=== PATIENT | female | born 1985 | race Caucasian/White ===

== ENCOUNTER → 2017-07-23 | Outpatient (CLI) | payer BC ==
[~2017-07-23] MED LIST: BACL10TA PO; CHLO500T4 PO; GABA-488 PO; GABA600T2 PO; HYDR-3812 PO; IBUP-1779 PO; IBUP-1780 PO; METF1000 PO; METF500T4 PO; OXYC-197 PO; OXYC-202 PO; OXYC10TA7 PO; SULF1TAB35 PO; TRAZ-28 PO
== END ==
LOC: RAD 09:44
PROVIDERS: ATTEND Family Medicine
DX: Z36.87 Encounter for antenatal screening for uncertain dates (principal); Z3A.11 11 weeks gestation of pregnancy
CPT/HCPCS: 76801

== ENCOUNTER → 2017-09-04 | Outpatient (CLI) | payer BC | LOC: RAD 11:26 | PROVIDERS: ATTEND Family Medicine | DX: Z36.87 Encounter for antenatal screening for uncertain dates (principal); Z53.29 Procedure and treatment not carried out because of patient's decision for other reasons ==

== ENCOUNTER → 2017-09-09 | Outpatient (CLI) | payer BC ==
--- NOTE | 2017-09-09 20:10 | Diagnostic Imaging Report ---
INDICATION: survey. TECHNIQUE: Multiple real-time grayscale images were obtained over the gravid uterus. COMPARISON: 07/23/2017. FINDINGS: The heart rate is 150 beats per minutes. There is adequate amniotic fluid suggested. The maternal large body habitus among other factors prevent evaluation of the adnexa of the mother. The placenta is posterior. No placenta previa. The cervix appears to be closed with estimated length of 3.5 cm. The kidneys, lateral ventricles, and the stomach are visualized. The bladder, the cord insertion, spine, four-chamber view, and three-vessel cord are not well demonstrated due to large patient body habitus. The growth parameters are: Biparietal diameter: 18 weeks and 2 days. Head circumference: 18 weeks and 1 day. Abdominal circumference: 18 weeks and 1 day. Femur length: 18 weeks and 5 days. These average at: 18 weeks and 3 days. This compares to gestational age of 18 weeks and 1 day based on first trimester ultrasound dating and assigned FARHAT of 02/09/2018. IMPRESSION: Limited survey due to patient's large body habitus. Follow-up study in 2-3 weeks is suggested to reevaluate bladder, three-vessel cord, spine, cord insertion, and four-chamber view. Dictated by: Dictated on workstation # [id number]
== END ==
LOC: RAD 15:19
PROVIDERS: ATTEND Family Medicine
DX: Z34.92 Encounter for supervision of normal pregnancy, unspecified, second trimester (principal); Z3A.18 18 weeks gestation of pregnancy
CPT/HCPCS: 76805

== ENCOUNTER → 2017-10-01 | Outpatient (CLI) | payer BC ==
--- NOTE | 2017-10-01 17:45 | Diagnostic Imaging Report ---
INDICATION: Followup urinary bladder, three-vessel cord, spine, cord insertion and four-chamber view. TECHNIQUE: Multiple real-time grayscale images were obtained over the gravid uterus. COMPARISON: 09/09/2017. FINDINGS: heart rate is 149 beats per minute. The placenta is fundal. No placenta previa. Amniotic fluid appears adequate. The cervix is 4.4 cm in length and is closed. The maternal adnexa is obscured by the gravid uterus. The upper and mid spine appear unremarkable. The lower spine is not well seen. Four-chamber view, the bladder, and three-vessel cord and cord insertion are not well seen. Please note that large patient body habitus is a limiting factor. IMPRESSION: The lower spine, the four-chamber view, bladder, cord insertion and three-vessel cord are still not well seen. Dictated by: Dictated on workstation # [id number]
== END ==
LOC: RAD 13:32
PROVIDERS: ATTEND Family Medicine
DX: Z34.80 Encounter for supervision of other normal pregnancy, unspecified trimester (principal); Z3A.00 Weeks of gestation of pregnancy not specified
CPT/HCPCS: 76805

== ENCOUNTER 2017-12-13 08:50 | Outpatient (RCR) | payer BC, OTHER ==
[~2017-12-13 08:50] MED LIST changes: +ACHD5005 PO; -HYDR-3812 PO; -METF1000 PO; +METF10002 PO; -METF500T4 PO; +METF500T5 PO
[2017-12-13 09:05] VITALS: BP 130/79
[2017-12-20 10:08] VITALS: BP 117/68
[2017-12-26 11:50] VITALS: BP 122/74
[2018-01-03 09:15] VITALS: BP 130/67
[2018-01-17 09:20] VITALS: BP 134/74
[2018-01-29] MEDS ORDERED: GABA-488 PO (20:03)
[2018-01-29] MEDS ORDERED: IRON18TA PO (20:04)
[2018-01-29] MEDS ORDERED: PREN-142 PO (20:04)
[2018-01-31] MEDS ORDERED: OXYC-465 PO (07:49)
[2018-01-31] MEDS ORDERED: IBUP-1780 PO (07:49)
[2018-01-31] MEDS ORDERED: DOCU100C37 PO (07:49)
== END 2018-03-13 | disposition home or self-care (01) ==
LOC: WSo 08:50
PROVIDERS: ATTEND Family Medicine
DX: O24.913 Unspecified diabetes mellitus in pregnancy, third trimester (principal)
CPT/HCPCS: 59025

== ENCOUNTER 2018-01-23 08:51 | Outpatient (CLI) | payer SELFPAY ==
[~2018-01-23] VITALS: Ht 160 cm; Wt 139.9 kg
[~2018-01-23 08:51] MED LIST changes: +METF1000 PO; -METF10002 PO; +METF500T4 PO; -METF500T5 PO
[2018-01-23 09:12] VITALS: BP 134/87
[2018-01-23 09:20] LABS: BILIRUBIN,URINE NEGATIVE (NEGATIVE); GLUCOSE, URINE (UA) NEGATIVE (NEGATIVE); KETONES,URINE NEGATIVE (NEGATIVE); LEUKOCYTE ESTERASE ,URINE 1+ (NEGATIVE); NITRITE,URINE NEGATIVE (NEGATIVE); PH,URINE 6.5 (5-9); UROBILINOGEN,URINE NORMAL (NORMAL)
[2018-01-23 09:27] LABS: CLARITY,URINE CLEAR; COLOR,URINE YELLOW
[2018-01-23 09:35] VITALS: BP 132/85
[2018-01-23 09:50] LABS: PROTEIN,URINE NEGATIVE (NEGATIVE)
[2018-01-23 09:51] LABS: BACTERIA,URINE LARGE /HPF; RBC,URINE RARE /HPF
[2018-01-23 09:55] VITALS: BP 139/90
[2018-01-23 10:15] VITALS: BP 137/91
--- NOTE | 2018-01-23 10:47 | Diagnostic Imaging Report ---
INDICATION: well being and gestational hypertension. TECHNIQUE: Multiple real-time grayscale images were obtained of the gravid uterus in various projections. FINDINGS: biophysical profile score is 8 out of 8. The placenta is posterior. There is no previa or abruption. heart rate is 143 beats per minute. The fetus is in cephalic presentation. Amniotic fluid index was 11.9. IMPRESSION: Normal biophysical profile score of 8 of 8. Dictated by: Dictated on workstation # [id number]
--- NOTE | 2018-01-24 10:53 | Physician Query-Final Dx ---
NEHEMIAS WRIGHT 01/24/18 1053: Clinic Account Progress/Dx Physician Query: Please give diagnosis Date of Service Jan 23, 2018 at 08:51 CANDICE MAGALLANES MD 01/27/18 0715: Clinic Account Progress/Dx DIAGNOSIS: Diagnosis 1. IUP at 37 weeks non labor 2. Isolated elevated blood pressure 3. Gestational diabetes NEHEMIAS WRIGHT Jan 24, 2018 10:53 CANDICE MAGALLANES MD Jan 27, 2018 07:15
== END 2018-01-23 10:40 | disposition home or self-care (01) ==
LOC: WSo 08:51 → LDRP 08:53 → WSo 10:40
PROVIDERS: ATTEND Family Medicine
DX: O24.419 Gestational diabetes mellitus in pregnancy, unspecified control (principal); O99.89 Other specified diseases and conditions complicating pregnancy, childbirth and the puerperium; R03.0 Elevated blood-pressure reading, without diagnosis of hypertension; Z3A.37 37 weeks gestation of pregnancy
CPT/HCPCS: 59025; 76819; 81000; 82570; 84156; 87088

== ENCOUNTER 2018-01-29 05:27 | Inpatient (IN) | payer MEDICAID ==
[~2018-01-29] VITALS: Ht 160 cm; Wt 144.2 kg
[~2018-01-29 05:27] MED LIST changes: -METF1000 PO; +METF10002 PO; -METF500T4 PO; +METF500T5 PO; +TRAZ-189 PO; -TRAZ-28 PO
[2018-01-29] MEDS ORDERED: LACTATED RINGERS 1,000 ML IV ONE (19:23)
[2018-01-29 19:30] VITALS: BP 136/83
[2018-01-29] MEDS ORDERED: BUTORPHANOL INJ 2 MG/ML (STADOL) VIAL IV PRN (19:45)
[2018-01-29] MEDS ORDERED: MINERAL OIL CONCENTRATE 99.9% 15 ML UDC TOP PRN (19:45)
[2018-01-29] MEDS ORDERED: CATHETER FLUSH 10 ML SYR IV PRN (19:45)
[2018-01-29] MEDS ORDERED: ZOLPIDEM 5 MG (AMBIEN) TAB PO NR (19:45)
[2018-01-29] MEDS ORDERED: TERBUTALINE INJ 1 MG/ML (BRETHINE) AMP SC PRN (19:45)
[2018-01-29] MEDS ORDERED: LACTATED RINGERS 1,000 ML IV SCH (19:45)
[2018-01-29 19:54] LABS: BASOPHILS % (AUTO) 0 % (0-10); EOSINOPHILS # (AUTO) 0.1 10^3/uL (0.0-0.3); EOSINOPHILS % (AUTO) 1 % (0-10); HEMATOCRIT 33 % (35-52); LYMPHOCYTES # (AUTO) 2.5 X 10^3 (1.0-4.0); LYMPHOCYTES % (AUTO) 19 % (12-44); MEAN CORPUSCULAR HEMOGLOBIN 27 PG (25-34); MEAN CORPUSCULAR HGB CONC 33 G/DL (32-36); MEAN CORPUSCULAR VOLUME 82 FL (80-99); MEAN PLATELET VOLUME 11.1 FL (7.4-10.4); MONOCYTES # (AUTO) 0.8 X 10^3 (0.0-1.0); MONOCYTES % (AUTO) 6 % (0-12); NEUTROPHILS # (AUTO) 10.1 X 10^3 (1.8-7.8); NEUTROPHILS % (AUTO) 75 % (42-75); PLATELET COUNT 270 10^3/uL (130-400); RED BLOOD COUNT 4.04 10^6/uL (4.35-5.85); RED CELL DISTRIBUTION WIDTH 14.8 % (10.0-14.5); WHITE BLOOD COUNT 13.6 10^3/uL (4.3-11.0)
[2018-01-29] MEDS ORDERED: GABA-488 PO (20:03)
[2018-01-29] MEDS ORDERED: PREN-142 PO (20:04)
[2018-01-29] MEDS ORDERED: IRON18TA PO (20:04)
[2018-01-29] MEDS: LACTATED RINGERS 1,000 ML IV SCH ×2 (20:06→22:42)
[2018-01-29 20:13] LABS: BILIRUBIN,URINE NEGATIVE (NEGATIVE); CLARITY,URINE VERY CLOUDY; COLOR,URINE YELLOW; GLUCOSE, URINE (UA) NEGATIVE (NEGATIVE); KETONES,URINE NEGATIVE (NEGATIVE); LEUKOCYTE ESTERASE ,URINE 2+ (NEGATIVE); NITRITE,URINE NEGATIVE (NEGATIVE); PH,URINE 6.5 (5-9); PROTEIN,URINE 2+ (NEGATIVE); UROBILINOGEN,URINE NORMAL (NORMAL)
[2018-01-29 20:25] LABS: BACTERIA,URINE LARGE /HPF
[2018-01-29] MEDS: MISOPROSTOL 100 MCG (CYTOTEC) TAB PV SCH (20:25)
[2018-01-29 21:30] VITALS: BP 127/75
--- NOTE | 2018-01-29 23:22 | History & Physical-OB ---
OB - Chief Complaint & HPI Date/Time Date of Admission: Date of Admission: Jan 29, 2018 at 18:46 Time Seen by Provider: 09:30 Chief Complaint/History OB-Reason for Admission/Chief: Induction of Labor (due to diabetes and PIH) Hx : 1 Hx Para: 0 Expected Date of Delivery: Feb 09, 2018 Gestational Age in Weeks: 38 Gestational Age in Days: 3 Indication for induction: other Admission Nurse Assessment Rev: Yes History of Labs GBS negative Allergies and Home Medications Allergies Coded Allergies: No Known Drug Allergies (Unverified , 06/09/15) Home Medications Gabapentin 300 Mg Capsule, 300 MG PO DAILY, (Reported) Iron 18 Mg Tablet, 65 MG PO BID, (Reported) Metformin HCl 1,000 Mg Tablet, 1,000 MG PO BID, (Reported) Vit No.124/Iron/FA 1 Each Tablet, 1 EACH PO DAILY, (Reported) Patient Home Medication List Home Medication List Reviewed: Yes OB - History Hx of Present Care: Yes Ultrasounds: Normal mid trimester US Obstetrical Complications: Gestational Diabetes, Other (PIH) Delivery History Hx Blood Disorders: No Adverse Rxn to Tranfusion: No Patient Past Medical History Diabetes mellitus Social History/Family History HIV/AIDS: No Recent Infectious Disease Expo: No Sexually Transmitted Disease: No Alcohol Use: Denies Use Recreational Drug Use: No Immunizations Hepatitis B: Yes OB - Admission Exam Physical Exam Vitals: Vital Signs 01/29/18 19:30 Temp 98.8 Pulse 106 Resp 18 B/P (MAP) 136/83 (100) HEENT: Moist Membranes Heart: Rhythm Normal Lungs: Clear Abdomen: Gravid Extremities: Edema (ankle mild) Cervical Dilatation: None (dimple) Effacement: 25% Station: Ballotable Membranes: Intact Heart Rate: 140's Accelerations: Accelerations Present Decelerations: No Decelerations Short Term Variability: Present Fdc Variability: Average (6-25) Contractions on Admission: None Peterson Scoring Tool (Modified) Dilation (cm): 0/Closed (0) Effacement (%): 0-30% (0) Descent/Station: -3 (0) Cervix Consistency: Soft (2) Cervix Position: Middle/Mid-Position (1) (3) Labs Laboratory Tests Test 01/29/18 19:30 01/29/18 19:35 Range/Units Urine Color YELLOW Urine Clarity VERY CLOUDY H Urine pH 6.5 5-9 Urine Specific [place] 1.015 L 1.016-1.022 Urine Protein 2+ H NEGATIVE Urine Glucose (UA) NEGATIVE NEGATIVE Urine Ketones NEGATIVE NEGATIVE Urine Nitrite NEGATIVE NEGATIVE Urine Bilirubin NEGATIVE NEGATIVE Urine Urobilinogen NORMAL NORMAL MG/DL Urine Leukocyte Esterase 2+ H NEGATIVE Urine RBC (Auto) NEGATIVE NEGATIVE Urine RBC NONE /HPF Urine WBC 5-10 H /HPF Urine Squamous Epithelial Cells 5-10 /HPF Urine Crystals NONE /LPF Urine Bacteria LARGE H /HPF Urine Casts NONE /LPF Urine Mucus NEGATIVE /LPF Urine Culture Indicated YES White Blood Count 13.6 H 4.3-11.0 10^3/uL Red Blood Count 4.04 L 4.35-5.85 10^6/uL Hemoglobin 11.0 L 11.5-16.0 G/DL Hematocrit 33 L 35-52 % Mean Corpuscular Volume 82 80-99 FL Mean Corpuscular Hemoglobin 27 25-34 PG Mean Corpuscular Hemoglobin Concent 33 32-36 G/DL Red Cell Distribution Width 14.8 H 10.0-14.5 % Platelet Count 270 130-400 10^3/uL Mean Platelet Volume 11.1 H 7.4-10.4 FL Neutrophils (%) (Auto) 75 42-75 % Lymphocytes (%) (Auto) 19 12-44 % Monocytes (%) (Auto) 6 0-12 % Eosinophils (%) (Auto) 1 0-10 % Basophils (%) (Auto) 0 0-10 % Neutrophils # (Auto) 10.1 H 1.8-7.8 X 10^3 Lymphocytes # (Auto) 2.5 1.0-4.0 X 10^3 Monocytes # (Auto) 0.8 0.0-1.0 X 10^3 Eosinophils # (Auto) 0.1 0.0-0.3 10^3/uL Basophils # (Auto) 0.0 0.0-0.1 10^3/uL OB - Assessment/Plan/Diagnosis Assessment Assessment: induction of labor (at 38w3d due to maternal diabetes and PIH) Admission Dx 1. IUP at 38w3d 2. Maternal diabetes-oral controlled 3. induced hypertension Admission Status: Inpatient Order (span 2 midnights) Reason for Inpatient Admission: Delivery of Plan Plan: Induction Induction Method: per Misoprostol Protocol Other Plan 2229: Patient had BPP 1 week ago with vertex presentation. With presenting part difficult to detect with digital exam, OB US ordered and at 2310 and breech presentation is confirmed. With maternal VS stable and no current contractions, primary LTCS will be arranged for the am at 07:30. Dr Mills has agreed to perform CS and surgery crew will be notified by the nursing research animal facility supervisor shen. CANDICE MAGALLANES MD Jan 29, 2018 23:22
[2018-01-30] VITALS (7 sets, daily range): BP systolic 120–151; BP diastolic 68–86
[2018-01-30] MEDS ORDERED: ACETAMINOPHEN 500 MG TAB (TYLENOL) PO ONE (00:30)
[2018-01-30] MEDS: MISOPROSTOL 100 MCG (CYTOTEC) TAB PV SCH ×2 (00:32→04:01)
[2018-01-30] MEDS ORDERED: METOCLOPRAMIDE INJ 10 MG/2 ML (REGLAN) ONE (06:13)
[2018-01-30] MEDS ORDERED: CITRIC ACID/SOB CIT (BICITRA) 30 ML UDC ONE (06:13)
[2018-01-30] MEDS ORDERED: raNItidine 50 MG/2 ML INJ (ZANTAC) ONE (06:20)
[2018-01-30] MEDS ORDERED: CITRIC ACID/SOB CIT (BICITRA) 30 ML UDC PO ONE (06:30)
[2018-01-30] MEDS ORDERED: METOCLOPRAMIDE INJ 10 MG/2 ML (REGLAN) IV ONE (06:30)
[2018-01-30] MEDS ORDERED: raNItidine 50 MG/2 ML INJ (ZANTAC) IV ONE (06:30)
[2018-01-30] MEDS ORDERED: LACTATED RINGERS 1,000 ML IV PRN (06:40)
[2018-01-30] MEDS ORDERED: OXYTOCIN/NORMAL SALINE 1,000 ML IV ONE (07:00)
[2018-01-30] MEDS ORDERED: KETOROLAC 30 MG/ML VIAL ONE (07:00)
[2018-01-30] MEDS ORDERED: fentaNYL INJECTION 100 MCG/2 ML AMP ONE (07:01)
[2018-01-30] MEDS ORDERED: KETAMINE HCL 100 MG/ML 5 ML VIAL ONE (07:01)
[2018-01-30] MEDS ORDERED: OXYTOCIN/NORMAL SALINE 500 ML IV SCH (07:06)
--- NOTE | 2018-01-30 07:06 | Progress Note-Pre Operative ---
Pre-Operative Progress Note H&P Reviewed The H&P was reviewed, patient examined and no changes noted. Date Seen by Provider: Jan 30, 2018 Time Seen by Provider: 07:06 Date H&P Reviewed: Jan 30, 2018 Time H&P Reviewed: 07:06 Pre-Operative Diagnosis: with PIH and GDM and breech presentation LUPILLO POE MD Jan 30, 2018 7:06 am
[2018-01-30] MEDS ORDERED: D5 LR IV SOLUTION 1,000 ML IV SCH (07:09)
[2018-01-30] MEDS ORDERED: D5 LR IV SOLUTION 1,000 ML IV ONE (07:14)
[2018-01-30] MEDS ORDERED: TETANUS,DIPTH,PERTUSS P/F (BOOSTRIX) 0.5 ML VIAL IM ONE (07:15)
[2018-01-30] MEDS ORDERED: MEASLES,MUMPS,RUBELLA 1 EA INJ SC ONE (07:15)
[2018-01-30] MEDS ORDERED: ceFAZolin INJECTION 2,000 MG in NS (IVPB) 100 ML IV ONE (07:15)
[2018-01-30] MEDS ORDERED: metroNIDAZOLE 500MG/100ML IVPB 100 ML IV ONE (07:15)
[2018-01-30] MEDS ORDERED: ONDANSETRON 4 MG/2 ML (SDV) Z0FRAN IVP PRN (07:15)
[2018-01-30] MEDS ORDERED: KETOROLAC 30 MG/ML VIAL IVP SCH (07:15)
--- NOTE | 2018-01-30 07:38 | Diagnostic Imaging Report ---
EXAM: US LIMITED [id number] INDICATION: Scheduled induction. Question presentation. COMPARISON: Biophysical profile ultrasound 01/23/2018. FINDINGS: Single live intrauterine in breech presentation. heart rate 161 bpm. Fundal placenta without evidence of previa. IMPRESSION: Single live intrauterine in the breech presentation. Dictated by: Dictated on workstation # [id number]
[2018-01-30] MEDS ORDERED: PHENYLEPHRINE 100 MCG/ML 10 ML (ANESTHESIA) SYR ONE (08:04)
[2018-01-30] MEDS: DOCUSATE SODIUM 100 MG (COLACE) CAP PO SCH ×2 (09:53→20:43)
[2018-01-30] MEDS: oxyCODONE/APAP 10/325MG (PERCOCET 10) TABLET PO PRN (11:05)
--- OUTSIDE RECORDS SUMMARY | 2018-01-30 12:12 | XMS REPORT | Continuity of Care Document ---
Author Author [facility] Address Unknown Phone Unavailable Allergies Active Description Code Type Severity Reaction Onset Reported/Identified Relationship to Patient Clinical Status Yes No Known Drug Allergies [id number] Drug Allergy Unknown N/A 06/09/2015 Medications There is no data. Problems Date Dx Coded Attending Type Code Diagnosis Diagnosed By 06/29/2008 JOAN LUNA V05.3 HEPATITIS VIRAL/ALL 06/29/2008 MOMO SERRANO APRN V05.3 HEPATITIS VIRAL/ALL 06/29/2008 HAN PEREIRA APRN V05.3 HEPATITIS VIRAL/ALL 07/05/2008 JOAN LUNA 845.10 SPRAIN/STRAIN FOOT 07/05/2008 MOMO SERRANO APRN 845.10 SPRAIN/STRAIN FOOT 07/05/2008 HAN PEREIRA APRN 845.10 SPRAIN/STRAIN FOOT 07/26/2008 JOAN LUNA 463 TONSILLITIS ACUTE 07/26/2008 MOMO SERRANO APRN 463 TONSILLITIS ACUTE 07/26/2008 HAN PEREIRA APRN 463 TONSILLITIS ACUTE 09/07/2008 JOAN LUNA 461.9 SINUSITIS ACUTE 09/07/2008 JOAN LUNA 786.2 COUGH 09/07/2008 MOMO SERRANO APRN 461.9 SINUSITIS ACUTE 09/07/2008 MOMO SERRANO APRN 786.2 COUGH 09/07/2008 HAN PEREIRA APRN 461.9 SINUSITIS ACUTE 09/07/2008 HAN PEREIRA APRN 786.2 COUGH 09/23/2008 JOAN LUNA 465.9 UPPER RESPIRATORY INFECTION 09/23/2008 MOMO SERRANO APRN 465.9 UPPER RESPIRATORY INFECTION 09/23/2008 HAN PEREIRA APRN 465.9 UPPER RESPIRATORY INFECTION 10/22/2008 JOAN LUNA 034.0 STREP THROAT 10/22/2008 MAGGIE BRANCH, MOMO L 034.0 STREP THROAT 10/22/2008 HAN PEREIRA APRN T 034.0 STREP THROAT 12/17/2014 Ot 724.4 12/22/2014 MAGGIE BRANCH, MOMO L 724.2 BACK PAIN, LOWER 12/22/2014 MAGGIE BRANCH, MOMO L 847.9 SPRAIN/STRAIN BACK UNSPEC 12/22/2014 KELLI BRANCH, HAN T 724.2 BACK PAIN, LOWER 12/22/2014 KELLI BRANCH, HAN T 847.9 SPRAIN/STRAIN BACK UNSPEC 06/13/2015 ROSALVA ALFRED DO Ot 722.10 06/13/2015 ROSALVA ALFRED DO Ot V72.63 06/13/2015 ROSALVA ALFRED DO Ot V74.8 06/13/2015 ROSALVA ALFRED DO Ot 250.00 DIAB DEAN WO COMPL, TYPE II OR UNSPEC TY 06/13/2015 ROSALVA ALFRED DO Ot 278.01 MORBID OBESITY 06/13/2015 ROSALVA ALFRED DO Ot 401.9 HYPERTENSION NOS 06/13/2015 ROSALVA ALFRED DO Ot 722.10 LUMBAR DISC DISPLACEMENT 06/13/2015 ROSALVA ALFRED DO Ot V85.43 BODY MASS INDEX 50.0-59.9, ADULT 06/17/2015 ROSALVA ALFRED DO Ot 722.10 06/17/2015 ROSALVA ALFRED DO Ot V72.63 06/17/2015 ROSALVA ALFRED DO Ot V74.8 06/27/2015 ROSALVA ALFRED DO Ot 278.00 OBESITY, NOS 06/27/2015 ROSALVA ALFRED DO Ot 998.59 06/27/2015 ROSALVA ALFRED DO Ot 998.83 NON-HEALING SURG WOUND 06/27/2015 ROSALVA ALFRED DO Ot V85.43 BODY MASS INDEX 50.0-59.9, ADULT 07/04/2015 ROSALVA ALFRED DO Ot 722.10 07/04/2015 ROSALVA ALFRED DO Ot V72.63 07/04/2015 ROSALVA ALFRED DO Ot V74.8 04/12/2016 ROSALVA ALFRED DO Ot 722.10 LUMBAR DISC DISPLACEMENT 04/12/2016 ROSALVA ALFRED DO Ot V72.63 PRE-PROCEDURAL LABORATORY EXAMINATION 04/12/2016 AUBRIE DICKSON ROSALVA Lori Ot V74.8 SCREEN-BACTERIAL DIS NEC 04/12/2016 HONG ZEPEDA, ELMIRA Chan Ot G89.29 OTHER CHRONIC PAIN 04/12/2016 HONG ZEPEDA, ELMIRA Chan Ot M54.5 LOW BACK PAIN 05/02/2016 AUBRIE DICKOSN ROSALVA Lori Ot M51.27 OTHER INTERVERTEBRAL DISC DISPLACEMENT, 05/02/2016 AUBRIE DO ROSALVA Lori Ot Z01.812 ENCOUNTER FOR PREPROCEDURAL LABORATORY E 05/02/2016 AUBRIE ROSALVA DICKSON Ot Z11.2 ENCOUNTER FOR SCREENING FOR OTHER BACTER 05/03/2016 AUBRIE ROSALVA DICKSON Ot M51.27 OTHER INTERVERTEBRAL DISC DISPLACEMENT, 05/03/2016 AUBRIE ROSALVA DICKSON Ot Z01.812 ENCOUNTER FOR PREPROCEDURAL LABORATORY E 05/03/2016 AUBRIE ROSALVA DICKSON Ot Z11.2 ENCOUNTER FOR SCREENING FOR OTHER BACTER 05/08/2016 AUBRIE DO ROSALVA Lori Ot M51.27 OTHER INTERVERTEBRAL DISC DISPLACEMENT, 05/08/2016 AUBRIE DO ROSALVA Lori Ot Z01.812 ENCOUNTER FOR PREPROCEDURAL LABORATORY E 05/08/2016 AUBRIE DICKSON ROSALVA Lori Ot Z11.2 ENCOUNTER FOR SCREENING FOR OTHER BACTER 05/14/2016 AUBRIE DO ROSALVA Lori Ot E66.01 MORBID (SEVERE) OBESITY DUE TO EXCESS CA 05/14/2016 AUBRIE DO ROSALVA Lori Ot M51.17 INTVRT DISC DISORDERS W RADICULOPATHY, L 05/14/2016 AUBRIE ROSALVA DICKSON Ot Z68.43 BODY MASS INDEX (BMI) 50-59.9 , ADULT 05/17/2016 AUBRIE DO ROSALVA Lori Ot E66.01 MORBID (SEVERE) OBESITY DUE TO EXCESS CA 05/17/2016 AUBRIE DO ROSALVA Lori Ot M51.17 INTVRT DISC DISORDERS W RADICULOPATHY, L 05/17/2016 AUBRIE ROSALVA DICKSON Ot Z68.43 BODY MASS INDEX (BMI) 50-59.9 , ADULT 07/24/2017 CANDICE MAGALLANES MD Ot Z36.87 ENCOUNTER FOR SCREENING FOR UN 07/24/2017 CANDICE MAGALLANES MD Ot Z3A.11 11 WEEKS GESTATION OF 07/31/2017 CANDICE MAGALLANES MD Ot Z36.87 ENCOUNTER FOR SCREENING FOR UN 07/31/2017 CANDICE MAGALLANES MD, Ot Z3A.11 11 WEEKS GESTATION OF 09/05/2017 CANDICE MAGALLANES MD, Ot Z36.87 ENCOUNTER FOR SCREENING FOR UN 09/05/2017 CANDICE MAGALLANES MD, Ot Z53.29 PROC/TRTMT NOT CRD OUT BEC PT DECISION F 09/10/2017 CANDICE MAGALLANES MD, Ot Z34.92 ENCNTR FOR SUPRVSN OF NORMAL PREG, UNSP, 09/10/2017 CANDICE MAGALLANES MD, Ot Z3A.18 18 WEEKS GESTATION OF 09/15/2017 CANDICE MAGALLANES MD, Ot Z34.92 ENCNTR FOR SUPRVSN OF NORMAL PREG, UNSP, 09/15/2017 CANDICE MAGALLANES MD, Ot Z3A.18 18 WEEKS GESTATION OF 09/18/2017 CANDICE MAGALLANES MD, Ot Z34.92 ENCNTR FOR SUPRVSN OF NORMAL PREG, UNSP, 09/18/2017 CANDICE MAGALLANES MD, Ot Z3A.18 18 WEEKS GESTATION OF 10/09/2017 CANDICE MAGALLANES MD, Ot Z34.80 ENCOUNTER FOR SUPRVSN OF NORMAL PREGNANC 10/09/2017 CANDICE MAGALLANES MD, Ot Z3A.00 WEEKS OF GESTATION OF NOT SPEC 01/23/2018 CANDICE MAGALLANES MD, Ot O24.419 GESTATIONAL DIABETES MELLITUS IN PREGNAN 01/23/2018 CANDICE MAGALLANES MD, Ot O99.89 OTH DISEASES AND CONDITIONS COMPL PREG/C 01/23/2018 CANDICE MAGALLANES MD, Ot R03.0 ELEVATED BLOOD-PRESSURE READING, W/O JUSTIN 01/23/2018 CANDICE MAGALLANES MD, Ot Z3A.37 37 WEEKS GESTATION OF 01/23/2018 ROSALVA ALFRED DO Ot 722.10 LUMBAR DISC DISPLACEMENT 01/23/2018 ROSALVA ALFRED DO Ot V72.63 PRE-PROCEDURAL LABORATORY EXAMINATION 01/23/2018 ROSALVA ALFRED DO Ot V74.8 SCREEN-BACTERIAL DIS NEC 01/28/2018 CANDICE MAGALLANES MD, Ot O24.419 GESTATIONAL DIABETES MELLITUS IN PREGNAN 01/28/2018 CANDICE MAGALLANES MD Ot O99.89 OT DISEASES AND CONDITIONS COMPL PREG/C 01/28/2018 CANDICE MAGALLANES MD Ot R03.0 ELEVATED BLOOD-PRESSURE READING, W/O JUSTIN 01/28/2018 CANDICE MAGALLANES MD Ot Z3A.37 37 WEEKS GESTATION OF 01/28/2018 CANDICE MAGALLANES MD Ot O24.419 GESTATIONAL DIABETES MELLITUS IN PREGNAN 01/28/2018 CANDICE MAGALLANES MD Ot O99.89 OTH DISEASES AND CONDITIONS COMPL PREG/C 01/28/2018 CANDICE MAGALLANES MD, Ot R03.0 ELEVATED BLOOD-PRESSURE READING, W/O JUSTIN 01/28/2018 CANDICE MAGALLANES MD Ot Z3A.37 37 WEEKS GESTATION OF 01/29/2018 ROSALVA ALFRED DO Ot 722.10 LUMBAR DISC DISPLACEMENT 01/29/2018 ROSALVA ALFRED DO Ot V72.63 PRE-PROCEDURAL LABORATORY EXAMINATION 01/29/2018 ROSALVA ALFRED DO Ot V74.8 SCREEN-BACTERIAL DIS NEC 01/29/2018 ROSALVA ALFRED DO Ot 722.10 LUMBAR DISC DISPLACEMENT 01/29/2018 ROSALVA ALFRED DO Ot V72.63 PRE-PROCEDURAL LABORATORY EXAMINATION 01/29/2018 ROSALVA ALFRED DO Ot V74.8 SCREEN-BACTERIAL DIS NEC 01/29/2018 ROSALVA ALFRED DO Ot 722.10 LUMBAR DISC DISPLACEMENT 01/29/2018 ROSALVA ALFRED DO Ot V72.63 PRE-PROCEDURAL LABORATORY EXAMINATION 01/29/2018 ROSALVA ALFRED DO Ot V74.8 SCREEN-BACTERIAL DIS NEC 01/29/2018 ROSALVA ALFRED DO Ot 722.10 LUMBAR DISC DISPLACEMENT 01/29/2018 ROSAVLA ALFRED DO Ot V72.63 PRE-PROCEDURAL LABORATORY EXAMINATION 01/29/2018 ROSALVA ALFRED DO Ot V74.8 SCREEN-BACTERIAL DIS NEC 01/30/2018 ROSALVA ALFRED DO Ot 722.10 LUMBAR DISC DISPLACEMENT 01/30/2018 ROSALVA ALFRED DO Ot V72.63 PRE-PROCEDURAL LABORATORY EXAMINATION 01/30/2018 ROSALVA ALFRED DO Ot V74.8 SCREEN-BACTERIAL DIS NEC Procedures Code Description [place] [address] THERAPUTIC INJ SQ/IM 02/02/2015 J1885 TORADOL INJ 02/02/2015 Results Test Result Range Urine protein/creatinine mass ratio - 01/23/18 08:50 Urine protein measurement (mass/volume) 12 mg/dL 6-12 Urine creatinine measurement (mass/volume) 119 mg/dL 30- 125 Urine protein/creatinine mass ratio 0.10 NRG Complete urinalysis with reflex to culture - 01/23/18 08:50 Urine color determination YELLOW NRG Urine clarity determination CLEAR NRG Urine pH measurement by test strip 6.5 5-9 Specific gravity of urine by test strip 1.020 1.016- 1.022 Urine protein assay by test strip, semi-quantitative NEGATIVE NEGATIVE Urine glucose detection by automated test strip NEGATIVE NEGATIVE Erythrocytes detection in urine sediment by light microscopy NEGATIVE NEGATIVE Urine ketones detection by automated test strip NEGATIVE NEGATIVE Urine nitrite detection by test strip NEGATIVE NEGATIVE Urine total bilirubin detection by test strip NEGATIVE NEGATIVE Urine urobilinogen measurement by automated test strip (mass/volume) NORMAL NORMAL Urine leukocyte esterase detection by dipstick 1+ NEGATIVE Automated urine sediment erythrocyte count by microscopy (number/high power field) RARE NRG Automated urine sediment leukocyte count by microscopy (number/high power field ) [HPF] NRG Bacteria detection in urine sediment by light microscopy LARGE NRG Squamous epithelial cells detection in urine sediment by light microscopy 10-25 NRG Crystals detection in urine sediment by light microscopy NONE NRG Casts detection in urine sediment by light microscopy NONE NRG Mucus detection in urine sediment by light microscopy NEGATIVE NRG Complete urinalysis with reflex to culture YES NRG Bacterial urine culture - 01/23/18 08:50 URINE CULTURE RESULTS MORE THAN 3 ISOLATES NRG Complete urinalysis with reflex to culture - 01/29/18 19:30 Urine color determination YELLOW NRG Urine clarity determination VERY CLOUDY NRG Urine pH measurement by test strip 6.5 5-9 Specific gravity of urine by test strip 1.015 1.016- 1.022 Urine protein assay by test strip, semi-quantitative 2+ NEGATIVE Urine glucose detection by automated test strip NEGATIVE NEGATIVE Erythrocytes detection in urine sediment by light microscopy NEGATIVE NEGATIVE Urine ketones detection by automated test strip NEGATIVE NEGATIVE Urine nitrite detection by test strip NEGATIVE NEGATIVE Urine total bilirubin detection by test strip NEGATIVE NEGATIVE Urine urobilinogen measurement by automated test strip (mass/volume) NORMAL NORMAL Urine leukocyte esterase detection by dipstick 2+ NEGATIVE Automated urine sediment erythrocyte count by microscopy (number/high power field) NONE NRG Automated urine sediment leukocyte count by microscopy (number/high power field ) [HPF] NRG Bacteria detection in urine sediment by light microscopy LARGE NRG Squamous epithelial cells detection in urine sediment by light microscopy 5-10 NRG Crystals detection in urine sediment by light microscopy NONE NRG Casts detection in urine sediment by light microscopy NONE NRG Mucus detection in urine sediment by light microscopy NEGATIVE NRG Complete urinalysis with reflex to culture YES NRG Complete blood count (CBC) with automated white blood cell (WBC) differential - 01/29/18 19:35 Blood leukocytes automated count (number/volume) 13.6 10*3/uL 4.3-11.0 Blood erythrocytes automated count (number/volume) 4.04 10*6/uL 4.35-5.85 Venous blood hemoglobin measurement (mass/volume) 11.0 g/dL 11.5-16.0 Blood hematocrit (volume fraction) 33 % 35-52 Automated erythrocyte mean corpuscular volume 82 [foz_us] 80-99 Automated erythrocyte mean corpuscular hemoglobin (mass per erythrocyte) 27 pg 25-34 Automated erythrocyte mean corpuscular hemoglobin concentration measurement ( mass/volume) 33 g/dL 32-36 Automated erythrocyte distribution width ratio 14.8 % 10.0-14.5 Automated blood platelet count (count/volume) 270 10*3/uL 130-400 Automated blood platelet mean volume measurement 11.1 [foz_us] 7.4-10.4 Automated blood neutrophils/100 leukocytes 75 % 42-75 Automated blood lymphocytes/100 leukocytes 19 % 12-44 Blood monocytes/100 leukocytes 6 % 0-12 Automated blood eosinophils/100 leukocytes 1 % 0-10 Automated blood basophils/100 leukocytes 0 % 0-10 Blood neutrophils automated count (number/volume) 10.1 10*3 1.8-7.8 Blood lymphocytes automated count (number/volume) 2.5 10*3 1.0-4.0 Blood monocytes automated count (number/volume) 0.8 10*3 0.0-1.0 Automated eosinophil count 0.1 10*3/uL 0.0-0.3 Automated blood basophil count (count/volume) 0.0 10*3/uL 0.0-0.1 Blood type T Indirect antibody screen panel - 01/29/18 19:35 ABO+Rh group AP NRG Transfusion band number [id number] NRG Blood group antibody screen NEGATIVE NRG Encounters ACCT No. Visit Date/Time Discharge Status Pt. Type Provider Facility Loc./Unit Complaint [id number] 02/02/2015 17:08:00 02/02/2015 23:59:59 CLS Outpatient HAN PEREIRA APRN [id number] 01/11/2015 08:34:00 01/11/2015 23:59:59 CLS Outpatient MOMO SERRANO APRN [id number] 10/10/2009 11:58:00 10/10/2009 23:59:59 CLS Outpatient JOAN LUNA [id number] 10/29/2012 20:19:00 RECURRING [id number] 01/23/2018 08:51:00 01/23/2018 10:40:00 DIS Outpatient CANDICE MAGALLANES MD [facility] NST BPP [id number] 12/13/2017 08:50:00 12/13/2017 23:59:59 CLS Outpatient CANDICE MAGALLANES MD [facility] , 3RD TRIMESTER, DIABETIC [id number] 10/01/2017 13:32:00 10/01/2017 23:59:59 CLS Outpatient CANDICE MAGALLANES MD [facility] RAD OB FU FOR BLADDER [id number] 09/09/2017 15:19:00 09/09/2017 23:59:59 CLS Outpatient CANDICE MAGALLANES MD [facility] RAD SURVEY [id number] 09/04/2017 11:26:00 09/04/2017 23:59:59 CLS Outpatient CANDICE MAGALLANES MD [facility] RAD SURVEY [id number] 07/23/2017 09:44:00 07/23/2017 23:59:59 CLS Outpatient CANDICE MAGALLANES MD [facility] RAD DATES [id number] 05/14/2016 06:20:00 05/14/2016 15:20:00 DIS Outpatient ROSALVA ALFRED DO [facility] NUCLEUS PULPOSUS [id number] 05/02/2016 09:52:00 05/02/2016 10:20:00 DIS Outpatient ROSALVA ALFRED DO [facility] PREOP NUCLEUS PULPOSUS [id number] 04/11/2016 23:53:00 04/12/2016 01:41:00 DIS Emergency HONG ZEPEDA, ELMIRA Chan [facility] ER BACK PAIN [id number] 06/27/2015 03:51:00 06/27/2015 16:27:00 DIS Inpatient ROSALVA ALFRED DO [facility] SURGICAL POST OPERATIVE INFECTION,FEVER [id number] 06/13/2015 08:54:00 06/13/2015 16:20:00 DIS Outpatient ROSALVA ALFRED DO [facility] SDC HERNIATED NUCLEUS PULPOSUS [id number] 06/02/2015 09:45:00 06/02/2015 23:59:59 CLS Outpatient ROSALVA ALFRED DO [facility] PREOP HERNIATED NUCLEUS PULPOSUS [id number] 01/29/2018 18:46:00 ACT Inpatient SONA ZEPEDA, CANDICE Chavarria [facility] LDRP BREECH PRESENTATION [id number] 12/14/2014 14:23:00 Document Registration [id number] 06/27/2015 02:30:51 ACT Document Registration
[2018-01-30] MEDS: PROMETHAZINE INJ 25 MG/ML (PHENERGAN) AMP IM PRN ×2 (13:05→20:44)
[2018-01-30] MEDS: MEPERIDINE (DEMEROL) INJ 100 MG/ML IM PRN ×2 (13:05→20:43)
--- NOTE | 2018-01-30 14:33 | OPERATIVE REPORT ---
DATE OF SERVICE: 01/30/2018 PREOPERATIVE DIAGNOSES: Term at 38+ weeks gestation with gestational diabetes, PIH, morbid obesity and eleanor breech presentation. POSTOPERATIVE DIAGNOSES: Term at 38+ weeks gestation with gestational diabetes, PIH, morbid obesity and eleanor breech presentation. OPERATIVE PROCEDURE: Primary low transverse delivery of a viable female infant with Apgars of 8 and 9 at 1 and 5 respectively, weight of 9 pounds 5 ounces. Cord blood pH of 7.23. time of 0745. ALUMINUM SHINGLE ROOFER FOR DELIVERY: Mich Russo MD DAIRY SCIENTIST FOR DELIVERY: Mich Russo MD OPERATIVE DESCRIPTION: With the patient in the supine position under satisfactory spinal anesthesia, the patient was prepped and draped in the usual fashion for abdominal surgery. The patient had a very large panniculus that was supported by placing towel clips at the upper margin of the right and left lower quadrants and then fixing those distention at the head of the bed with a Kerlix to expose the lower abdomen and the mons. With the patient satisfactorily prepped and draped, a Pfannenstiel incision was then made through the skin with a scalpel at the lower abdomen at the site of a normal Pfannenstiel incision. The abdomen was entered in the usual manner. Bladder retractor placed into position and clean scalpel used to make a 4 cm hysterotomy incision transversely across the lower uterine segment. Copious clear fluid was released on hysterotomy. A vigorous viable female was delivered via the uterine incision by breach extraction after first locating the feet then those down to the incision. The infant was bulb suctioned on completion of delivery. The umbilical cord was doubly clamped and cut and the taken to the warmer by Dr. Russo, the compliance tester in attendance for delivery. Cord bloods were obtained. The placenta delivered spontaneously [place]. It was normal with a 3-vessel cord. The uterus was exteriorized and to wipe clean with a wet laparotomy sponge. Uterine incision then closed with a running locked suture of 2-0 Vicryl. Hemostasis was complete. The uterus was returned to the abdominal cavity. All blood clot and debris removed from the abdominal cavity. With sponge, needle counts correct, hemostasis assured. The anterior parietal peritoneum was closed with running suture of 2-0 Vicryl. Rectus muscles were closed with that suture as well, rectus fascia was closed with 2-0 Vicryl, subcutaneous tissue with 2-0 Vicryl and the skin was stapled. Sponge and needle counts were correct at the end of procedure. Estimated blood loss for the procedure was around 600 mL. The patient tolerated the procedure well and was recovered in the recovery room. The had been taken stable to the full term nursery under the care of Dr. Russo. Job ID: [id number] DocumentID: [id number] Dictated Date: 01/30/2018 08:14:07 Ballet Dancer Date: 01/30/2018 14:33:20 Dictated By: LUPILLO POE MD
[2018-01-30] MEDS: KETOROLAC 30 MG/ML VIAL IVP SCH ×2 (15:20→20:43)
[2018-01-30] MEDS ORDERED: PATIENT MAY USE OWN MEDS, ALL MC SCH (16:15)
[2018-01-30] MEDS: metFORMIN 500 MG (GLUCOPHAGE) TAB PO SCH (20:43)
[2018-01-30] MEDS ORDERED: NON-FORMULARY MEDICATION 1 EA EA (Metformin HCl 1,000 MG) PO SCH (21:00)
[2018-01-31 03:05] VITALS: BP 147/88
[2018-01-31] MEDS: KETOROLAC 30 MG/ML VIAL IVP SCH (03:05)
[2018-01-31] MEDS ORDERED: PRENATAL VITAMIN 1 EA TAB PO SCH (07:00)
--- NOTE | 2018-01-31 07:46 | Anesthesia-Regional Post-Op ---
Regional Patient Condition Mental Status: Alert, Oriented x3 Circulation: Same as Pre-Op Headache: Absent Sensation: Full Recovery Motor Block: Absent Post Op Complications Complications None Follow Up Care/Instructions Patient Instructions None needed. Anesthesia/Patient Condition Patient is doing well, no complaints, stable vital signs, no apparent adverse anesthesia problems. No complications reported per nursing. LUCRECIA QUEZADA CRNA Jan 31, 2018 07:46
--- NOTE | 2018-01-31 07:47 | Progress Note-Standard ---
Standard Progress Note Progress Notes/Assess & Plan Date Seen by Provider: Jan 31, 2018 Time Seen by Provider: 07:46 Progress/Assessment & Plan This patient is without complaint. She is ablating, voiding, tolerating by mouth well, has good pain control. Patient denies chest pain, denies shortness of breath, denies nausea vomiting, and denies headache. Vital Signs Date Time Temp Pulse Resp B/P (MAP) Pulse Ox O2 Delivery O2 Flow Rate FiO2 01/31/18 03:05 98.6 99 24 147/88 (107) 98 Room Air 01/30/18 20:45 99.1 105 24 151/82 (105) 97 Room Air 01/30/18 15:58 98.2 109 24 133/82 (99) 97 Room Air 01/30/18 12:10 98.1 88 20 120/68 (85) 96 Room Air 01/30/18 09:15 98.0 98 16 130/76 (94) 98 Room Air I & O 01/31/18 07:00 Intake Total 5000 ml Output Total 1900 ml Balance 3100 ml Vital signs are stable. Patient is afebrile. Blood pressures have been acceptable The abdomen is benign. Extreme show no clubbing cyanosis. There is no Homans sign. There is fairly notable pretibial pitting edema that is not abnormal. Assessment and plan postoperative day number 1 status post primary doing well. Plan for routine convalescence care today and consider discharge home tomorrow LUPILLO POE MD Jan 31, 2018 7:47 am
[2018-01-31] MEDS ORDERED: IBUP-1780 PO (07:49)
[2018-01-31] MEDS ORDERED: DOCU100C37 PO (07:49)
[2018-01-31] MEDS ORDERED: OXYC-465 PO (07:49)
--- NOTE | 2018-01-31 07:51 | Discharge Instructions ---
Discharge Instructions Discharge Medications New, Converted or Re-Newed RX: RX on Chart Patient Instructions Patient Instructions: As directed Return to The Hospital For: As directed Activity & Diet Discharge Diet: No Restrictions Activity as Tolerated: No Orders-Post D/C & Referrals Follow Up Appt: RTC 1 week for incision check with Dr. Mills Call to make follow up appt. for patient in [address] Wadsworth Wound Care: Remove kirk, apply benzoin and steri strips. Activity Per routine post instructions. Please call in RX to patient pharmacy. Diet as tolerated Patient may shower or tub bathe as desired. Continue home meds LUPILLO MILLS MD Jan 31, 2018 7:51 am
[2018-01-31 08:15] VITALS: BP 128/84
[2018-01-31] MEDS: metFORMIN 500 MG (GLUCOPHAGE) TAB PO SCH ×2 (08:24→19:14)
[2018-01-31] MEDS: PRENATAL VITAMIN 1 EA TAB PO SCH (08:24)
[2018-01-31] MEDS: IBUPROFEN 800 MG (MOTRIN) TAB PO SCH ×3 (08:24→21:07)
[2018-01-31] MEDS: DOCUSATE SODIUM 100 MG (COLACE) CAP PO SCH ×2 (08:25→21:07)
[2018-01-31] MEDS: GABAPENTIN 300 MG (NEURONTIN) CAP PO SCH (08:27)
[2018-01-31] MEDS: oxyCODONE/APAP 10/325MG (PERCOCET 10) TABLET PO PRN ×3 (09:29→21:08)
[2018-01-31 15:00] VITALS: BP 131/84
[2018-01-31 22:15] VITALS: BP 132/88
[2018-02-01 04:20] VITALS: BP 132/86
[2018-02-01] MEDS: IBUPROFEN 800 MG (MOTRIN) TAB PO SCH ×2 (04:20→10:42)
[2018-02-01] MEDS: oxyCODONE/APAP 10/325MG (PERCOCET 10) TABLET PO PRN ×2 (04:20→10:42)
[2018-02-01 08:15] VITALS: BP 127/72
--- NOTE | 2018-02-01 08:45 | Progress Note-Standard ---
Standard Progress Note Progress Notes/Assess & Plan Date Seen by Provider: Feb 01, 2018 Time Seen by Provider: 08:44 Progress/Assessment & Plan This patient is without complaint. She is ablating, voiding, tolerating by mouth well, has good pain control. Patient denies chest pain, denies shortness of breath, denies nausea vomiting, and denies headache. Vital Signs Date Time Temp Pulse Resp B/P (MAP) Pulse Ox O2 Delivery O2 Flow Rate FiO2 01/31/18 03:05 98.6 99 24 147/88 (107) 98 Room Air 01/30/18 20:45 99.1 105 24 151/82 (105) 97 Room Air 01/30/18 15:58 98.2 109 24 133/82 (99) 97 Room Air 01/30/18 12:10 98.1 88 20 120/68 (85) 96 Room Air 01/30/18 09:15 98.0 98 16 130/76 (94) 98 Room Air I & O 01/31/18 07:00 Intake Total 5000 ml Output Total 1900 ml Balance 3100 ml Vital signs are stable. Patient is afebrile. Blood pressures have been acceptable The abdomen is benign. Extreme show no clubbing cyanosis. There is no Homans sign. There is fairly notable pretibial pitting edema that is not abnormal. Assessment and plan postoperative day number 1 status post primary doing well. Plan for routine convalescence care today and consider discharge home tomorrow February 01, 2015 Patient without complaint. She is ambulating, voiding, tolerating by mouth, had good pain control. Patient is requesting discharge home. Vital Signs Date Time Temp Pulse Resp B/P (MAP) Pulse Ox O2 Delivery O2 Flow Rate FiO2 02/01/18 04:20 97.3 99 18 132/86 (101) 99 Room Air 01/31/18 22:15 97.7 101 18 132/88 (103) 97 Room Air 01/31/18 15:00 98.1 102 18 131/84 (100) 98 Room Air I & O 02/01/18 07:00 Intake Total 1400 ml Balance 1400 ml Vital signs are stable. Patient afebrile. Abdomen is benign. The surgical incision is clean dry and intact. Extremities show no clubbing cyanosis. Homans sign. Pretibial pitting edema that is normal. Assessment and plan postoperative day number 2 status post primary doing well. Plan is for discharge home with follow-up in clinic Final Diagnosis Primary delivery LUPILLO POE MD Feb 01, 2018 8:45 am
--- NOTE | 2018-02-01 08:48 | Discharge Summary ---
Discharge Summary Primary delivery This patient is a 32-year-old G1 white female patient Dr. Wadsworth she was admitted on January 29, 2018 for labor induction secondary to hypertension and diabetes at 38+ weeks gestation. After admission she was found to have a breech presentation. She was observed through the night on January 29. On January 30 was consult for primary delivery secondary to the breech presentation. She underwent delivery under spinal analgesia on that date On January 31 patient is ambulating, voiding, tolerating by mouth, had good pain control. Patient had routine care through the day. Now on February 01 patient is again ambulating well voiding well tolerating by mouth well has good pain control and is requesting discharge home. Diagnoses this hospitalization is 38+ week primary delivery Secondary diagnoses are morbid obesity, hypertension, gestational diabetes, eleanor breech presentation Operation procedures include monitoring spinal analgesia and primary delivery Patient given appropriate discharge instructions verbally and in writing a copy placed in chart., Discharge medications are Percocet and Motrin and Colace. Clinical Quality Measures DVT/VTE Risk/Contraindication: Risk Factor Score Per Nursin RFS Level Per Nursing on Admit: 2=Moderate LUPILLO POE MD Feb 01, 2018 8:48 am
[2018-02-01] MEDS: DOCUSATE SODIUM 100 MG (COLACE) CAP PO SCH (09:23)
[2018-02-01] MEDS: PRENATAL VITAMIN 1 EA TAB PO SCH (09:23)
[2018-02-01] MEDS: metFORMIN 500 MG (GLUCOPHAGE) TAB PO SCH (09:25)
[2018-02-01] MEDS: GABAPENTIN 300 MG (NEURONTIN) CAP PO SCH (09:29)
[2018-02-01] MEDS ORDERED: TETANUS,DIPTH,PERTUSS P/F (BOOSTRIX) 0.5 ML VIAL IM ONE (12:29)
== END 2018-02-01 12:45 | disposition home or self-care (01) | DRG 765 ==
LOC: LDRP 18:46
PROVIDERS: ADMIT Family Medicine; ATTEND Family Medicine
PROC: 3E0P7GC Introduction of Other Therapeutic Substance into Female Reproductive, Via Natural or Artificial Opening (ICD-10-PCS; 2018-01-29)
PROC: 10D00Z1 Extraction of Products of Conception, Low, Open Approach (ICD-10-PCS; principal; 2018-01-30 07:18)
DX: O13.4 Gestational [pregnancy-induced] hypertension without significant proteinuria, complicating childbirth (principal); Z68.43 Body mass index [BMI] 50.0-59.9, adult; O24.425 Gestational diabetes mellitus in childbirth, controlled by oral hypoglycemic drugs; O64.1XX0 Obstructed labor due to breech presentation, not applicable or unspecified; O99.214 Obesity complicating childbirth; E66.01 Morbid (severe) obesity due to excess calories; Z3A.38 38 weeks gestation of pregnancy; Z37.0 Single live birth; Z23 Encounter for immunization; Z79.84 Long term (current) use of oral hypoglycemic drugs
CPT/HCPCS: 36415; 76815; 81000; 85025; 86850; 86900; 86901; 87088; 88307; 90715; 94664

== ENCOUNTER → 2020-03-30 | Outpatient (CLI) | payer SELFPAY ==
[~2020-03-30] MED LIST changes: +DOCU100C37 PO; -GABA600T2 PO; +GBPN600T PO; +IRON18TA PO; +METF-397 PO; +METF-399 PO; -METF10002 PO; -METF500T5 PO; -OXYC-197 PO; -OXYC-202 PO; +OXYC-465 PO; +OXYC1TAB12 PO; +OXYC1TAB87 PO; +PREN-142 PO; -TRAZ-189 PO; +TRZ50T PO
--- NOTE | 2020-03-30 16:43 | Diagnostic Imaging Report ---
INDICATION: Size and dates. COMPARISON: None. TECHNIQUE: Transpelvic and transvaginal sonogram was performed. FINDINGS: There is a single, live intrauterine with a crown-rump length measuring 18.9 cm, which is consistent with an 8 week and 3 day old fetus. heart rate was documented at 179 beats per minute. anatomy is not well seen at this early state of gestation. There is small area of hypoechogenicity peripheral to the gestational sac near the lower uterine segment concerning for small subchorionic hemorrhage. No adnexal masses are identified. Ovaries cannot be adequately visualized There is no free fluid in the cul-de-sac. CLINICAL DATES: Gestational age 9 weeks and 5 days FARHAT is 10/28/2020 IMPRESSION: 1. Single, live intrauterine at 8 weeks and 3 days gestation. Estimated due date is 11/06/2020. 2. Probable small subchorionic hemorrhage. Dictated by: Dictated on workstation # [id number]
== END ==
LOC: RAD 14:52
PROVIDERS: ATTEND Family Medicine
DX: Z34.91 Encounter for supervision of normal pregnancy, unspecified, first trimester (principal); Z3A.08 8 weeks gestation of pregnancy
CPT/HCPCS: 76801; 76817

== ENCOUNTER → 2020-06-14 | Outpatient (CLI) | payer OTHER ==
--- NOTE | 2020-06-14 13:02 | Diagnostic Imaging Report ---
INDICATION: survey. TECHNIQUE: Multiple real-time grayscale images were obtained over the gravid uterus. COMPARISON: 03/30/2020. FINDINGS: There is a single live fetus in a cephalic presentation. heart rate was recorded at 147 bpm. Placenta is anterior. Amniotic fluid index is 12.4 cm. No previa is identified. Cervical length is 5.2 cm. survey is somewhat limited due to patient's body habitus. brain anatomy as well as four-chamber heart view, kidneys and spine were not well visualized. bladder and stomach are unremarkable. There is a three-vessel cord with normal insertion. Biometrical measurements are as follows: Biparietal 4.56 cm, age 19 weeks 6 days. Head circumference 16.61 cm, age 19 weeks 3 days. Abdominal circumference 14.51 cm, age 19 weeks 6 days. Femur length 2.94 cm, age 19 weeks 1 days. Sonographic estimate age: 19 weeks 4 days. Sonographic estimated date of delivery: 11/04/2020. Estimated Weight: 294 gm (+/- 43 gm). LMP percentile: 6%. heart rate: 147 beats per minute. number: 1 of 1. IMPRESSION: Single live IUP at 19-20 weeks gestational age showing normal interval growth when compared with prior exam. survey is unremarkable, although survey of the brain anatomy, four-chambered heart view, kidneys and spine was limited due to patient's body habitus. Follow-up could be performed. Dictated by: Dictated on workstation # [id number]
== END ==
LOC: RAD 09:27
PROVIDERS: ATTEND Family Medicine
DX: Z34.92 Encounter for supervision of normal pregnancy, unspecified, second trimester (principal); Z3A.19 19 weeks gestation of pregnancy
CPT/HCPCS: 76805

== ENCOUNTER → 2020-08-30 | Outpatient (CLI) | payer OTHER ==
[~2020-08-30] MED LIST changes: -OXYC-465 PO; +OXYC-556 PO
--- NOTE | 2020-08-30 11:34 | Diagnostic Imaging Report ---
INDICATION: , follow-up. COMPARISON: 06/14/2020. TECHNIQUE: Multiple real-time grayscale images were obtained over the gravid uterus. FINDINGS: There is a single live intrauterine gestation in breech presentation. The cervix measures 4.2 cm in length. No endocervical fluid or funneling is seen. Measurements are given below. The nose and lips are seen. The lateral ventricles are seen in normal in size. The cerebellum appears normal. The cisterna magna appears normal in size. The four-chamber heart is seen and appears normal. heart rate measures 150 BPM. The upper and lower extremities are seen bilaterally. The bilateral kidneys are seen. The upper and lower spine is seen. The diaphragm is seen. The placenta is anterior and appears normal. The amniotic fluid index measures 18.7 cm. Biometrical measurements are as follows: Biparietal 8.02 cm, age 32 weeks 2 days. Head circumference 29.45 cm, age 32 weeks 4 days. Abdominal circumference 28.86 cm, age 33 weeks 0 days. Femur length 6.30 cm, age 32 weeks 5 days. Sonographic estimate age: 32 weeks 5 days. Sonographic estimated date of delivery: 10/20/20. Estimated Weight: 2028 gm (+/- 296 gm). LMP percentile: 98%. heart rate: 150 beats per minute. number: 1 of 1. IMPRESSION: 1. Single live intrauterine gestation measuring at 32 weeks and 5 days, which is within range of the given clinical dates. 2. anatomy not seen on the prior exam is visible today. No abnormalities are seen. 3. Breech presentation. Dictated by: Dictated on workstation # [id number]
== END ==
LOC: RAD 09:37
PROVIDERS: ATTEND Family Medicine
DX: Z34.03 Encounter for supervision of normal first pregnancy, third trimester (principal); Z3A.32 32 weeks gestation of pregnancy
CPT/HCPCS: 76816

== ENCOUNTER 2020-09-30 09:21 | Outpatient (RCR) | payer MEDICAID, OTHER ==
[2020-09-30 09:59] VITALS: BP 121/75
[2020-10-17] MEDS ORDERED: FERR-84 PO (13:11)
[2020-10-17] MEDS ORDERED: GBPN600T PO (13:11)
[2020-10-17] MEDS ORDERED: GLBR5T PO (13:11)
[2020-10-24] MEDS ORDERED: DCS100C PO (07:33)
[2020-10-24] MEDS ORDERED: IBUP-844 PO (07:33)
[2020-10-24] MEDS ORDERED: ACHD5005 PO (07:33)
== END 2020-12-29 | disposition home or self-care (01) ==
LOC: WSo 09:21
PROVIDERS: ATTEND Family Medicine
DX: O24.419 Gestational diabetes mellitus in pregnancy, unspecified control (principal); Z3A.00 Weeks of gestation of pregnancy not specified
CPT/HCPCS: 59025

== ENCOUNTER 2020-10-17 05:36 | Outpatient (RCR) | payer MEDICAID ==
[~2020-10-17] VITALS: Ht 160 cm; Wt 140.9 kg
[2020-10-17] MEDS ORDERED: GBPN600T PO (13:11)
[2020-10-17] MEDS ORDERED: FERR-84 PO (13:11)
[2020-10-17] MEDS ORDERED: GLYB5TAB6 PO (13:11)
== END 2020-10-17 13:34 | disposition home or self-care (01) ==
LOC: PREOP 05:36
PROVIDERS: ATTEND Obstetrics & Gynecology
DX: Z01.818 Encounter for other preprocedural examination (principal); O24.429 Gestational diabetes mellitus in childbirth, unspecified control; Z3A.38 38 weeks gestation of pregnancy

== ENCOUNTER 2020-10-24 06:13 | Inpatient (IN) | payer MEDICAID ==
[2020-10-24] VITALS (10 sets, daily range): BP systolic 124–154; BP diastolic 62–95
[~2020-10-24] VITALS: Ht 160 cm; Wt 141.0 kg
[~2020-10-24 06:13] MED LIST changes: +CITRIC ACID/SOB CIT (BICITRA) 30 ML UDC ONE; +FAMOTIDINE 20MG/2ML IV (PEPCID) ONE; +FERR-84 PO; +GLYB5TAB6 PO; +METOCLOPRAMIDE INJ 10 MG/2 ML (REGLAN) ONE
[2020-10-24] MEDS ORDERED: CITRIC ACID/SOB CIT (BICITRA) 30 ML UDC PO ONE (06:30)
[2020-10-24] MEDS ORDERED: METOCLOPRAMIDE INJ 10 MG/2 ML (REGLAN) IV ONE (06:30)
[2020-10-24] MEDS ORDERED: ceFAZolin 2 GM IV Premixed 50 ML IV ONE (06:30)
[2020-10-24] MEDS ORDERED: FAMOTIDINE 20MG/2ML IV (PEPCID) IV ONE (06:30)
[2020-10-24] MEDS ORDERED: metroNIDAZOLE 500MG/100ML IVPB 100 ML IV ONE (06:30)
[2020-10-24] MEDS ORDERED: LACTATED RINGERS 1,000 ML IV PRN ×2 (06:30)
[2020-10-24 07:21] LABS: BASOPHILS % (AUTO) 0 % (0-10); EOSINOPHILS # (AUTO) 0.1 10^3/uL (0.0-0.3); EOSINOPHILS % (AUTO) 1 % (0-10); HEMATOCRIT 36 % (35-52); HEMOGLOBIN 11.3 g/dL (11.5-16.0); LYMPHOCYTES # (AUTO) 3.6 10^3/uL (1.0-4.0); LYMPHOCYTES % (AUTO) 30 % (12-44); MEAN CORPUSCULAR HEMOGLOBIN 26 pg (25-34); MEAN CORPUSCULAR HGB CONC 32 g/dL (32-36); MEAN CORPUSCULAR VOLUME 80 fL (80-99); MONOCYTES # (AUTO) 0.9 10^3/uL (0.0-1.0); MONOCYTES % (AUTO) 7 % (0-12); NEUTROPHILS # (AUTO) 7.6 10^3/uL (1.8-7.8); NEUTROPHILS % (AUTO) 62 % (42-75); PLATELET COUNT 421 10^3/uL (130-400); WHITE BLOOD COUNT 12.3 10^3/uL (4.3-11.0)
[2020-10-24] MEDS ORDERED: KETAMINE/NaCl 50 MG/5 ML SYRINGE (ED ONLY) ONE (07:22)
[2020-10-24] MEDS ORDERED: fentaNYL INJECTION 100 MCG/2 ML AMP ONE (07:23)
--- NOTE | 2020-10-24 07:25 | History & Physical-OB ---
OB - Chief Complaint & HPI Date/Time Date of Admission: Date of Admission: Oct 24, 2020 at 06:13 Date seen by a Provider: Oct 24, 2020 Time Seen by a Provider: 07:20 Chief Complaint/History OB-Reason for Admission/Chief: Section Hx : 2 Hx Para: 1 Expected Date of Delivery: Nov 06, 2020 Gestational Age in Weeks: 38 Gestational Age in Days: 1 Indication for : desires repeat Admission Nurse Assessment Rev: Yes Allergies and Home Medications Allergies Coded Allergies: No Known Drug Allergies (Unverified , 10/17/20) Home Medications Ferrous Sulfate 325 Mg Tablet, 325 MG PO DAILY, (Reported) Gabapentin 600 Mg Tablet, 300 MG PO BID, (Reported) Glyburide 5 Mg Tablet, 5 MG PO DAILY, (Reported) Metformin HCl 1,000 Mg Tablet, 1,000 MG PO BID, (Reported) Vit No.124/Iron/FA 1 Each Tablet, 1 EACH PO DAILY, (Reported) Patient Home Medication List Home Medication List Reviewed: Yes OB - History Hx of Present Care: Yes Ultrasounds: Normal mid trimester US Obstetrical Complications: Gestational Diabetes Medical Complications: None Delivery History Hx Blood Disorders: No Adverse Rxn to Tranfusion: No (N/A) Patient Past Medical History Diabetes mellitus Social History/Family History HIV/AIDS: No Sexually Transmitted Disease: No Immunizations Hepatitis B: Yes Date of Influenza Vaccine: Jul 25, 2020 OB - Admission Exam Physical Exam HEENT: NCAT Heart: Rhythm Normal Lungs: Clear Abdomen: Gravid Extremities: Normal Reflexes: Normal Heart Rate: 140's Accelerations: Accelerations Present Decelerations: No Decelerations Short Term Variability: Present Chcf Variability: Average (6-25) Contractions on Admission: >10 Minutes Apart Intensity: Mild Labs Laboratory Tests Test 10/24/20 07:03 Range/Units OB - Assessment/Plan/Diagnosis Assessment Assessment: section Admission Dx 34 yo @ 38.1 Previous GDMA2 BMI >40 Admission Status: Inpatient Order (span 2 midnights) Reason for Inpatient Admission: Repeat Plan Plan: Section BENTLEY ZARATE DO Oct 24, 2020 07:25
[2020-10-24] MEDS ORDERED: MEASLES,MUMPS,RUBELLA 1 EA INJ SC SCH (07:30)
[2020-10-24] MEDS ORDERED: TETANUS,DIPTH,PERTUSS P/F (BOOSTRIX) 0.5 ML VIAL IM SCH (07:30)
[2020-10-24] MEDS ORDERED: ONDANSETRON 4 MG/2 ML (SDV) Z0FRAN IVP PRN (07:30)
--- NOTE | 2020-10-24 07:31 | Discharge Inst-Women's Service ---
Discharge Inst-Women's Serv Depart Medication/Instructions New, Converted or Re-Newed RX: RX on Chart Final Diagnosis POD 2 RLTCS Problems Reviewed?: Yes Consults/Follow Up Additional Follow Up: Yes Orders/Referrals Dr. Gonzalez in 7-[address] Russo in 6 weeks Activity Activity: Activity as Tolerated Driving Instructions: No Driving for 1 Week NO SMOKING: NO SMOKING Nothing Inside Vagina: No Douching, No [place], No Tampons Diet Discharge Diet: No Restrictions Symptoms to Report to : Bleeding Excessive, Pain Increased, Fever Over 101 Degrees F, Vaginal Bleeding Increase, Questions/Concerns For Any Problems or Questions: Contact Your Physician Skin/Wound Care Infection Signs and Symptoms: Increased Redness, Foul Odor of Wound, Increased Drainage, Skin Itchy or Has a Rash, Increased Swelling, Temperature Above 101 F Operative Area Clean and Dry: Keep Incision Clean/Dry Stitches/[place]/Dermabond: Dermabond, Care of Stitches Bathing Instructions: BENTLEY Goldman DO Oct 24, 2020 07:31
[2020-10-24] MEDS ORDERED: ACHD5005 PO (07:33)
[2020-10-24] MEDS ORDERED: DCS100C PO (07:33)
[2020-10-24] MEDS ORDERED: IBUP-844 PO (07:33)
[2020-10-24] MEDS: OXYTOCIN PRE-MIX DRIP 500 ML IV SCH ×2 (08:30→08:45)
[2020-10-24] MEDS ORDERED: KETOROLAC 30 MG/ML VIAL ONE (08:53)
[2020-10-24] MEDS ORDERED: OXYTOCIN PRE-MIX DRIP 1,000 ML IV ONE (08:53)
[2020-10-24] MEDS: KETOROLAC 30 MG/ML VIAL IV SCH ×3 (09:00→22:49)
[2020-10-24] MEDS ORDERED: BUPIVACAINE 0.5% 30 ML (SENSORCAINE) VIAL ONE (09:25)
[2020-10-24] MEDS ORDERED: METOCLOPRAMIDE 10 MG (REGLAN) TAB PO SCH (12:00)
[2020-10-24] MEDS ORDERED: PATIENT MAY USE OWN MEDS, ALL MC SCH (12:15)
[2020-10-24] MEDS: METFORMIN HCL 1000 MG PO SCH ×2 (13:16→19:46)
[2020-10-24] MEDS: GABAPENTIN 600 MG (NEURONTIN) TAB PO SCH ×2 (13:17→19:47)
[2020-10-24] MEDS: glyBURIDE 5 MG (MICRONASE) TAB PO SCH (13:18)
[2020-10-24] MEDS ORDERED: CATHETER FLUSH 10 ML SYR IV SCH (14:00)
--- NOTE | 2020-10-24 15:35 | OPERATIVE REPORT ---
DATE OF SERVICE: PREOPERATIVE DIAGNOSES: 1. A 34-year-old G2, P1 at 38 weeks and 1 day gestation. 2. Previous section. 3. GDMA 2. 4. Morbid obesity. POSTOPERATIVE DIAGNOSES: 1. A 34-year-old G2, P1 at 38 weeks and 1 day gestation. 2. Previous section. 3. GDMA 2. 4. Morbid obesity. PROCEDURE: Repeat low transverse section. SURGEON: Chico Zarate DO CROSSING TENDER: Mich Russo MD, who was necessary for manipulation and retraction throughout the procedure. ANESTHESIA: Spinal. ESTIMATED BLOOD LOSS: 500 mL. URINE OUTPUT: 25 mL clear at the end of the procedure. FLUIDS: 1700 mL lactated Ringer's solution. FINDINGS: A live male infant, weight pending. Apgars of 6 and 9. Grossly normal appearing uterus, bilateral fallopian tubes and ovaries. There is an anterior fundal subserosal fibroid approximately 2 x 1.5 cm. Otherwise, grossly normal appearing surface of the uterus. SPECIMEN SENT: Placenta. INDICATIONS FOR PROCEDURE: This 34-year-old female is a patient who had been consulted to my care due to need for repeat . She sought her care with Dr. Russo. Her care was uncomplicated with the exception for GDMA 2, which was well controlled on glyburide as well as the patient's body habitus. In the preoperative area, repeat was discussed with the patient in detail. We also discussed risk of bleeding, infection, damage to surrounding structures including, but not limited to bowel, bladder, ureter, kidneys, possible need for operation, postoperative complications that may occur, risk from anesthesia, recovery timeframe and even . After everything was discussed with the patient in detail in the preoperative area, consent was obtained, the patient was taken to the operating room. OPERATIVE REPORT IN DETAIL: Once in the operating room, spinal anesthesia was found to be adequate, placed in supine position with leftward tilt and prepped and draped in normal sterile fashion. In the prepping process, we do use 2 towel clamps to elevate the patient's pannus and retracted during the procedure. After anesthesia was tested, timeout was performed. I then proceeded with making a Pfannenstiel skin incision through the previously existing scar using knife and carried down to the underlying fascia using Bovie cautery. Fascial incision extended laterally using Bovie cautery. Superior aspect of fascial incision was then grasped with Fernando clamps, tented up and dissected off the underlying rectus muscle. Inferior aspect of fascial incision was then grasped with Fernando clamps, tented up and dissected off the underlying rectus muscles. Rectus muscles were then dissected down the midline using Collier scissors, which exposed the peritoneum, which I entered bluntly and extended using blunt traction. Dagoberto ring retractor was placed in the peritoneal incision, which offers excellent lateral sidewall retraction. I then identified the lower uterine segment, which was found to be thinned out and make a low transverse incision to the vesicouterine peritoneum and bluntly dissected off the lower uterine segment. I proceeded with myotomy until membranes were visualized, at which point I extended the uterine incision laterally and superiorly using bandage scissors. Amniotomy was performed in the process of doing this. Lightly meconium stained fluid was noted at the time of rupture. The was found in vertex presentation. With gentle fundal pressure, the 's head was elevated up the incision. There was difficulty with delivery of the 's head through the incision due to the patient's body habitus. Therefore, I placed a Kiwi vacuum extractor on the flexion point on the sagittal suture of the skull and apply 15 mmHg of suction and gently I am able to deliver the head through the incision at that point. Nares and oropharynx were bulb suctioned. Anterior and posterior shoulders were delivered. The suction cup was removed from the infant's head and the patient was then brought on to the operative field with cord doubly clamped and cut and infant handed off to Dr. Russo for further attendance of the baby after delivery. Cord blood was collected, 3-vessel cord with intact placenta was delivered spontaneously thereafter. IV Pitocin was initiated to facilitate uterine contraction. Uterine fundus confirmed by manual massage. Uterus was then exteriorized and cleared of all endometrial clots and debris. I then proceeded with closing the uterine incision using 0 Vicryl suture in a running locking fashion. Second layer of imbricating 0 Monocryl was placed. Excellent hemostasis was noted after doing this. I then placed the uterus back in the pelvis and copiously irrigated the pelvis using normal saline. Once again, there was no active bleeding noted from any of my dissection planes. I placed Interceed antiadhesive over my low transverse incision and then removed the Dagoberto ring retractor. I then proceeded with closing the peritoneum using 3-0 Vicryl suture in running fashion. Rectus muscles were reapproximated using 3-0 Vicryl suture in interrupted fashion. The fascia was reapproximated using 0 Vicryl suture in running fashion. Subcutaneous tissue was reapproximated using 3-0 plain interrupted subcutaneous stitch and skin reapproximated using kirk. Sterile dressing with adhesive white tape. The patient tolerated the procedure well and sent to recovery in stable condition. Lap and sponge counts were correct at the end of the procedure. Instrument counts correct as well. Two grams of Ancef were given preoperatively for infection prophylaxis. Job ID: [id number] DocumentID: [id number] Dictated Date: 10/24/2020 09:29:11 Male Infertility Specialist Date: 10/24/2020 15:35:01 Dictated By: CHICO ZARATE DO
[2020-10-24] MEDS: HYDROcodone/APAP 5 MG/325 MG (LORTAB) TAB PO PRN (17:22)
[2020-10-24] MEDS: DOCUSATE SODIUM 100 MG (COLACE) CAP PO SCH ×2 (18:25→19:46)
[2020-10-24] MEDS ORDERED: ENOXAPARIN 40 MG/0.4 ML (LOVENOX) SYR SQ SCH (19:30)
[2020-10-24] MEDS: ENOXAPARIN 60 MG/0.6 ML (LOVENOX) SYR SC SCH (20:35)
[2020-10-24] MEDS: METOCLOPRAMIDE 10 MG (REGLAN) TAB PO SCH (22:49)
[2020-10-25 03:07] VITALS: BP 132/85
[2020-10-25 05:03] VITALS: BP 139/82
[2020-10-25] MEDS: KETOROLAC 30 MG/ML VIAL IV SCH (05:04)
[2020-10-25] MEDS: METOCLOPRAMIDE 10 MG (REGLAN) TAB PO SCH ×2 (05:04→10:50)
[2020-10-25] MEDS: HYDROcodone/APAP 5 MG/325 MG (LORTAB) TAB PO PRN ×2 (05:05→10:50)
[2020-10-25 06:30] LABS: BASOPHILS % (AUTO) 0 % (0-10); EOSINOPHILS # (AUTO) 0.1 10^3/uL (0.0-0.3); EOSINOPHILS % (AUTO) 1 % (0-10); HEMATOCRIT 35 % (35-52); LYMPHOCYTES # (AUTO) 2.6 10^3/uL (1.0-4.0); LYMPHOCYTES % (AUTO) 23 % (12-44); MEAN CORPUSCULAR HEMOGLOBIN 25 pg (25-34); MEAN CORPUSCULAR HGB CONC 32 g/dL (32-36); MEAN CORPUSCULAR VOLUME 80 fL (80-99); MEAN PLATELET VOLUME 10.2 fL (9.0-12.2); MONOCYTES # (AUTO) 0.8 10^3/uL (0.0-1.0); MONOCYTES % (AUTO) 7 % (0-12); NEUTROPHILS # (AUTO) 7.6 10^3/uL (1.8-7.8); NEUTROPHILS % (AUTO) 68 % (42-75); PLATELET COUNT 353 10^3/uL (130-400); WHITE BLOOD COUNT 11.1 10^3/uL (4.3-11.0)
--- NOTE | 2020-10-25 06:54 | Anesthesia-Regional Post-Op ---
Regional Patient Condition Mental Status: Alert, Oriented x3 Circulation: Same as Pre-Op Headache: Absent Sensation: Full Recovery Motor Block: Absent Post Op Complications Complications None Follow Up Care/Instructions Patient Instructions None needed. Anesthesia/Patient Condition Patient is doing well, no complaints, stable vital signs, no apparent adverse anesthesia problems. No complications reported per nursing. LUCRECIA QUEZADA CRNA Oct 25, 2020 06:54
--- NOTE | 2020-10-25 07:57 | Postpartum Progress Note ---
Note Note Day # 1 Subjective: Patient is without complaints. Ambulating, voiding. Tolerating a regular diet without nausea or vomiting. Normal lochia. Pain is well controlled with oral pain medications. Objective: Physical Exam: General - Alert and oriented, no apparent distress Abdomen - Soft, appropriately tender to palpation, non-distended, fundus firm at umbilicus Extremities - no edema, negative Lore's bilaterally Incision- c/d/i -kirk in place Assessment: POD 1 RLTCS AODM- decent control noted overnight Labile BP- elevated at time her infant was transferred, but has been stable since. Plan: Routine care. Encourage breast feeding. Encourage ambulation. Ferrous sulfate supplementation. Plan for discharge possibly today to be with transferred infant Vitals - Labs Vital Signs - I&O Vital Signs Date Time Temp Pulse Resp B/P (MAP) Pulse Ox O2 Delivery O2 Flow Rate FiO2 10/25/20 05:03 37.0 76 16 139/82 (101) 98 Room Air 10/25/20 03:07 36.0 73 16 132/85 (101) 98 Room Air 10/24/20 22:48 36.2 75 16 149/74 (99) 96 Room Air 10/24/20 18:27 36.3 84 16 128/66 (86) 97 Room Air 10/24/20 09:56 36.2 64 16 154/94 (114) 97 Room Air 10/24/20 09:50 Room Air 10/24/20 09:50 36.5 18 141/87 (105) 98 Room Air 10/24/20 09:42 Room Air 10/24/20 09:40 18 139/82 (101) 98 Room Air 10/24/20 09:34 Room Air 10/24/20 09:30 18 140/88 (105) 98 Room Air 10/24/20 09:27 Room Air 10/24/20 09:20 18 126/76 (93) 98 Room Air 10/24/20 09:15 Room Air 10/24/20 09:10 18 124/78 (93) 97 Room Air 10/24/20 09:02 Room Air 10/24/20 09:02 36.3 21 124/62 (82) 97 Room Air I & O 10/25/20 07:00 Intake Total 1050 ml Output Total 560 ml Balance 490 ml Labs Laboratory Tests 10/24/20 13:01: Glucometer 243H 10/24/20 15:16: Glucometer 118H 10/24/20 19:59: Glucometer 125H 10/25/20 05:11: Glucometer 71 10/25/20 06:00: White Blood Count 11.1H, Red Blood Count 4.33, Hemoglobin 11.0L, Hematocrit 35, Mean Corpuscular Volume 80, Mean Corpuscular Hemoglobin 25, Mean Corpuscular Hemoglobin Concent 32, Red Cell Distribution Width 13.9, Platelet Count 353, Mean Platelet Volume 10.2, Immature Granulocyte % (Auto) 1, Neutrophils (%) (Au to) 68, Lymphocytes (%) (Auto) 23, Monocytes (%) (Auto) 7, Eosinophils (%) (Auto) 1, Basophils (%) (Auto) 0, Neutrophils # (Auto) 7.6, Lymphocytes # (Auto) 2.6, Monocytes # (Auto) 0.8, Eosinophils # (Auto) 0.1, Basophils # (Auto) 0.0, Immature Granulocyte # (Auto) 0.1 BENTLEY ZARATE DO Oct 25, 2020 07:57
[2020-10-25] MEDS: ENOXAPARIN 60 MG/0.6 ML (LOVENOX) SYR SC SCH (08:58)
[2020-10-25] MEDS: DOCUSATE SODIUM 100 MG (COLACE) CAP PO SCH (08:58)
[2020-10-25 09:00] VITALS: BP 137/85
[2020-10-25] MEDS: glyBURIDE 5 MG (MICRONASE) TAB PO SCH (09:00)
[2020-10-25] MEDS: METFORMIN HCL 1000 MG PO SCH (09:01)
[2020-10-25] MEDS: GABAPENTIN 600 MG (NEURONTIN) TAB PO SCH (09:06)
[2020-10-25] MEDS ORDERED: IBUPROFEN 600 MG (MOTRIN) TAB PO SCH ×2 (11:00)
== END 2020-10-25 11:02 | disposition home or self-care (01) | DRG 788 ==
LOC: LDRP 06:13
PROVIDERS: ADMIT Obstetrics & Gynecology; ATTEND Obstetrics & Gynecology
PROC: 10D00Z1 Extraction of Products of Conception, Low, Open Approach (ICD-10-PCS; principal; 2020-10-24 07:50)
DX: O34.211 Maternal care for low transverse scar from previous cesarean delivery (principal); Z3A.38 38 weeks gestation of pregnancy; Z37.0 Single live birth; O24.429 Gestational diabetes mellitus in childbirth, unspecified control; O99.214 Obesity complicating childbirth; E66.01 Morbid (severe) obesity due to excess calories
CPT/HCPCS: 36415; 82962; 85025; 86850; 86900; 86901; 87081; 88307; 90715; 94664